=== PATIENT | male | born 2000 | race American Indian/Alaskan Native ===

== ENCOUNTER 2019-07-12 18:17 | Emergency (ER) | payer BC, MEDICAID ==
[2019-07-12 21:32] VITALS: BP 145/81
--- NOTE | 2019-07-12 21:32 | Event Note ---
ED Screening Note Date of service: 07/12/19 Time: 21:29 ED Screening Note: This is a 18 y.o. M. that presents to the ER with swelling and pain to right knee. Patient states he landed wrong while jumping off a cage at work today. This initial assessment/diagnostic orders/clinical plan/treatment(s) is/are subject to change based on patients health status, clinical progression and re- assessment by fellow clinical providers in the ED. Further treatment and workup at subsequent clinical providers discretion. Patient/guardian urged not to elope from the ED as their condition may be serious if not clinically assessed and managed. Initial orders include: XR right knee
--- NOTE | 2019-07-12 22:08 | XRay Report ---
RIGHT KNEE, 3 VIEWS 07/12/2019 INDICATION / CLINICAL INFORMATION: swelling and pain anterior. COMPARISON: None available. FINDINGS: There is a large joint effusion. There are degenerative changes of the patellofemoral joint and lateral compartment. No fractures or dislocation. Signer Name: Bob Isbell MD Signed: 07/12/2019 10:03 PM Workstation Name: [id number]
[2019-07-12] MEDS ORDERED: IBUPROFEN 800 MG TAB PO ONE (23:05)
[2019-07-12] MEDS ORDERED: ACETAMINOPHEN 500 MG TAB PO ONE (23:05)
[2019-07-12] MEDS ORDERED: predniSONE 20 MG TAB PO ONE (23:05)
--- NOTE | 2019-07-12 23:15 | Emergency Department Report ---
ED Lower Extremity HPI - General Chief Complaint: Extremity Injury, Lower Stated Complaint: RT KNEE WORK INJURY/PAIN Time Seen by Provider: 07/12/19 21:29 Source: patient Mode of arrival: Wheelchair Limitations: No Limitations - History of Present Illness Initial Comments: This is a 18 y.o. M. that presents to the ER with swelling and pain to right knee. Patient states he landed wrong while jumping off a cage at work today. state unable to bear weight. Complaint: knee injury Onset/Timin -: hour(s) Injury: Knee: Right Type of Injury: hyperextension Place: home Severity: moderate Severity scale (0 -10): 5 Improves With: nothing Worsens With: weight bearing, movement, palpation Context: jumping Associated Symptoms: snap/pop sensation, swelling, unable to bear weight - Related Data Previous Rx's Medication Instructions Recorded Last Taken Type Acetaminophen/Codeine [Tylenol 1 tab PO Q6H PRN #12 tab 07/12/19 Unknown Rx /Codeine # 3 tab] Cyclobenzaprine [Flexeril] 10 mg PO TID PRN #30 tablet 07/12/19 Unknown Rx Naproxen [Naprosyn] 500 mg PO BID PRN #30 tablet 07/12/19 Unknown Rx predniSONE [Deltasone] 40 mg PO QDAY 5 Days #10 tab 07/12/19 Unknown Rx Allergies Allergy/AdvReac Type Severity Reaction Status Date / Time No Known Allergies Allergy Unverified 07/12/19 18:19 ED Review of Systems ROS: Stated complaint: RT KNEE WORK INJURY/PAIN Other details as noted in HPI Constitutional: denies: chills, fever Eyes: denies: eye pain, eye discharge, vision change ENT: denies: ear pain, throat pain Respiratory: denies: cough, shortness of breath, wheezing Cardiovascular: denies: chest pain, palpitations Endocrine: no symptoms reported Gastrointestinal: denies: abdominal pain, nausea, vomiting, diarrhea Genitourinary: other (deferred ) Musculoskeletal: joint swelling (right knee pain swelling ) Skin: denies: rash, lesions Neurological: denies: headache, weakness, paresthesias Psychiatric: denies: anxiety, depression Hematological/Lymphatic: denies: easy bleeding, easy bruising ED Past Medical Hx - Past Medical History Previous Medical History?: Yes Additional medical history: DISLOCATED HIP AND CLEFT LIP A BABY - Surgical History Past Surgical History?: Yes Additional Surgical History: Right knee cartilage replacement - Social History Smoking Status: Never Smoker Substance Use Type: None - Medications Home Medications: Home Medications Medication Instructions Recorded Confirmed Last Taken Type Acetaminophen/Codeine [Tylenol 1 tab PO Q6H PRN #12 tab 07/12/19 Unknown Rx /Codeine # 3 tab] Cyclobenzaprine [Flexeril] 10 mg PO TID PRN #30 tablet 07/12/19 Unknown Rx Naproxen [Naprosyn] 500 mg PO BID PRN #30 tablet 07/12/19 Unknown Rx predniSONE [Deltasone] 40 mg PO QDAY 5 Days #10 tab 07/12/19 Unknown Rx ED Physical Exam - General Limitations: No Limitations General appearance: alert, in no apparent distress - Head Head exam: Present: atraumatic, normocephalic - Eye Eye exam: Present: normal appearance, PERRL, EOMI Pupils: Present: normal accommodation - ENT ENT exam: Present: mucous membranes moist - Neck Neck exam: Present: normal inspection, full ROM. Absent: tenderness - Respiratory Respiratory exam: Present: normal lung sounds bilaterally. Absent: respiratory distress, wheezes, stridor, chest wall tenderness - Cardiovascular Cardiovascular Exam: Present: regular rate, normal rhythm, normal heart sounds. Absent: systolic murmur, diastolic murmur, rubs, gallop - GI/Abdominal GI/Abdominal exam: Present: soft, normal bowel sounds - Rectal Rectal exam: Present: deferred - Extremities Exam Extremities exam: Present: normal inspection, tenderness (right anteriror knee ), normal capillary refill, joint swelling. Absent: calf tenderness - Expanded Lower Extremity Exam Right Knee exam: Present: tenderness, swelling, effusion, pain w/ pronation/supination, full knee extension. Absent: abrasion, laceration, ecchymosis, deformity, crepidus, dislocation, erythema, posterior draw sign, pain/laxity with valgus, pain/laxity with varus Lower Leg exam: Present: full ROM. Absent: tenderness Ankle exam: Present: full ROM. Absent: tenderness Foot/Toe exam: Present: full ROM. Absent: tenderness Neuro vascular tendon exam: Absent: pulse deficit, motor deficit, sensory deficit, tendon deficit Gait: Positive: observed and limited by pain - Back Exam Back exam: Present: normal inspection, full ROM. Absent: tenderness, muscle spasm, paraspinal tenderness, vertebral tenderness - Expanded Back Exam Expanded Back exam: Absent: saddle anesthesia Back exam: Negative Straight Leg Raising: Left, Right - Neurological Exam Neurological exam: Present: alert, oriented X3, CN II-XII intact, normal gait, reflexes normal. Absent: motor sensory deficit - Psychiatric Psychiatric exam: Present: normal affect, normal mood - Skin Skin exam: Present: warm, dry, intact, normal color. Absent: rash ED Course Vital Signs 07/12/19 21:29 Temperature 98.6 F Pulse Rate 82 Blood Pressure 145/81 ED Lower Extremity MDM - Radiology Data Radiology results: report reviewed, image reviewed degenerative changes to patellofemoral joint and lateral comparment, large joint effusion. - Medical Decision Making Nsaids, prednisone, knee immobilizer, crutches follow up with orthopedics n 2-3 days, return to emergency if symptoms worsen, pt verbalized agreement and understanding of discharge plan, immobilizer splint complete spacing is appropriate , crutches: pt demonstrated safe use of same, pt dc'd to self in stable condition at this time. Critical care attestation.: If time is entered above; I have spent that time in minutes in the direct care of this critically ill patient, excluding procedure time. ED Disposition Clinical Impression: Knee effusion, right Knee sprain Qualifiers: Encounter type: initial encounter Involved ligament of knee: unspecified ligament Laterality: right Qualified Code(s): S83.91XA - Sprain of unspecified site of right knee, initial encounter Disposition: DC-01 TO HOME OR SELFCARE Is pt being admited?: No Does the pt Need Aspirin: No Condition: Stable Instructions: Knee Effusion (ED) Prescriptions: predniSONE [Deltasone] 40 mg PO QDAY 5 Days #10 tab Cyclobenzaprine [Flexeril] 10 mg PO TID PRN #30 tablet PRN Reason: Muscle Spasm Naproxen [Naprosyn] 500 mg PO BID PRN #30 tablet PRN Reason: pain Acetaminophen/Codeine [Tylenol /Codeine # 3 tab] 1 tab PO Q6H PRN #12 tab PRN Reason: severe pain Referrals: LUZ SHEN MD [Staff Physician] - 3-5 Days Forms: Work/School Release Form(ED) Time of Disposition: 23:30
== END 2019-07-12 23:55 | disposition home or self-care (01) ==
LOC: ED 18:17
DX: S83.91XA Sprain of unspecified site of right knee, initial encounter (principal); M25.461 Effusion, right knee; X50.9XXA Other and unspecified overexertion or strenuous movements or postures, initial encounter; Y93.89 Activity, other specified; Y92.89 Other specified places as the place of occurrence of the external cause; Y99.8 Other external cause status
CPT/HCPCS: 29505; 73562; 99283; J7512